=== PATIENT | male | born 1995 | race Two or more races ===

== ENCOUNTER 2025-04-14 21:15 | Emergency (ER) | payer MEDICAID, OTHER ==
[~2025-04-14] VITALS: Ht 167.6 cm; Wt 100.3 kg
[2025-04-14] MEDS: hydrOXYzine 25 MG TAB or CAP PO ONE (21:45)
--- NOTE | 2025-04-14 21:48 | ED.PDOC ---
History of Present Illness HPI Comments 29-year-old male who came to ER for chest pains. Patient has been experiencing intermittent episodes of his sternal chest pains for the past week, tight, nonradiating, associated with shortness of breath, cough, dizziness and numbness of both upper extremities. States chest pains usually occur at night Chief Complaint: Chest Pain Time Seen by MD: 21:48 Reviewed Notes: Nurses Notes Allergies: Coded Allergies: NO KNOWN ALLERGIES (Unverified , 04/14/25) Information Source: Patient Mode of Arrival: Ambulatory Past Medical History Past Medical History (Other): Celiac disease Surgical History: Denies all surgeries Family History Family History: Reviewed,noncontributory to illness Social History Smoker: Non-Smoker Alcohol: Denies ETOH Use Drugs: Denies Drug Use Lives In: Home Was a procedure done? Was a procedure done?: No EKG EKG : Pulse Rate (adult): 90 Cardiac Rhythm: NSR Differential Dx Considerations may include: Anemia, electrolyte imbalance, anxiety, chest pain X-Ray, Labs, Meds, VS Vital Signs Date Time Temp Pulse Resp B/P (MAP) Pulse Ox O2 Delivery O2 Flow Rate FiO2 04/15/25 00:29 98.4 65 18 146/80 (102) 100 98.4 04/14/25 22:10 98.7 68 16 143/82 (102) 98 98.7 04/14/25 21:48 90 04/14/25 21:25 80 04/14/25 21:15 98.2 104 22 170/81 98 98.2 Lab Test 04/15/25 00:32 04/14/25 22:30 04/14/25 21:31 Range/Units Troponin I High Sensitivity Pending < 3 L < 3 L </=54 ng/L White Blood Count 10.0 4.4-10.8 10^3/uL Red Blood Count 5.25 4.5-5.90 10^6/uL Hemoglobin 15.0 13.5-17.5 g/dL Hematocrit 43.8 41.0-53.0 % Mean Corpuscular Volume 83.4 80.0-100.0 fL Mean Corpuscular Hemoglobin 28.5 28.0-32.0 pg Mean Corpuscular Hemoglobin Concent 34.2 32.0-36.0 g/dL Red Cell Distribution Width 13.3 11.8-14.3 % Platelet Count 351 140-450 10^3/uL Mean Platelet Volume 7.9 6.9-10.8 fL Neutrophils (%) (Auto) 58.9 37.0-80.0 % Lymphocytes (%) (Auto) 32.7 10.0-50.0 % Monocytes (%) (Auto) 6.6 0.0-12.0 % Eosinophils (%) (Auto) 1.5 0.0-7.0 % Basophils (%) (Auto) 0.3 0.0-2.0 % Neutrophils # (Auto) 5.9 1.6-8.6 10 ^3/uL Lymphocytes # (Auto) 3.3 0.4-5.4 10 ^3/uL Monocytes # (Auto) 0.7 0-1.3 10 ^3/uL Eosinophils # (Auto) 0.1 0-0.8 10 ^3/uL Basophils # (Auto) 0 0-0.2 10 ^3/uL Nucleated Red Blood Cells 0.2 % Sodium Level 140 136-145 mmol/L Potassium Level 3.6 3.5-5.1 mmol/L Chloride Level 105 98-107 mmol/L Carbon Dioxide Level 24 20-31 mmol/L Anion Gap 11 5-15 Blood Urea Nitrogen 11 9-23 mg/dL Creatinine 1.25 0.700-1.30 mg/dL Glomerular Filtration Rate Calc 80 >90 mL/min BUN/Creatinine Ratio 8.8 L 10.0-20.0 Serum Glucose 96 74-106 mg/dL Calcium Level 9.8 8.7-10.4 mg/dL B-Type Natriuretic Peptide 10.60 0-100 pg/mL Current Medications Medications (Trade) Dose Ordered Sig/Jodi Route Start Time Stop Time Status Last Admin Al Hydrox/Mg Hydrox/Simethicone (Maalox Plus) 30 ml ONCE ONCE PO 04/14/25 21:45 04/14/25 21:46 DC 04/14/25 22:50 Lidocaine HCl (Xylocaine 2% Viscous) 10 ml ONCE ONCE PO 04/14/25 21:45 04/14/25 21:46 DC 04/14/25 22:50 Hydroxyzine Pamoate (Vistaril Oral) 50 mg ONCE ONCE PO 04/14/25 21:45 04/14/25 21:46 DC 04/14/25 21:45 PROCEDURE(s): CXR1 - CHEST XRAY 1 VIEW REASON: cp ORDER NUMBER(s): [id number], ACCESSION NUMBER(s): [id number] CLINICAL HISTORY: Chest pain. TECHNIQUE: Single frontal view of the chest was obtained. COMPARISON: None FINDINGS: DEVICES/LINES/TUBES: None. LUNGS: Clear. PLEURA: No pneumothorax or pleural effusion. MEDIASTINUM/OTHER: Normal heart size and mediastinal contours. Trachea is midline. BONES: Unremarkable. UPPER ABDOMEN: Unremarkable. IMPRESSION: No acute cardiopulmonary process. Time of 1ST Reevaluation: 21:42 Reevaluation 1ST: Unchanged Patient Education/Counseling: Need For Follow Up Family Education/Counseling: No Family Present SEPSIS Sepsis Screen Date sepsis recognized/suspect: Apr 14, 2025 Time Sepsis recognized/suspect: 2120 Recent Procedure: No On Antibiotic Therapy: No Respiratory Rate >20: No Heart Rate >90: Yes Temp<36 C (96.8 F) or >38.3 C: No SBP <90 or MAP <65 mmHG: No New Acute Mental Status Change: No Is the patient on CPAP, BIPAP,: No Physician Orders Electrocardigram (04/14/25 21:42) Chest Xray 1 View (04/14/25 21:42) Vital Signs Q1HR (04/14/25 21:42) Electrocardigram (04/14/25 22:42) Electrocardigram (04/15/25 00:42) Troponin-I Hs (04/15/25 00:42) Vital Signs Date Time Temp Pulse Resp B/P (MAP) Pulse Ox O2 Delivery O2 Flow Rate FiO2 04/15/25 00:29 98.4 65 18 146/80 (102) 100 98.4 04/14/25 22:10 98.7 68 16 143/82 (102) 98 98.7 04/14/25 21:48 90 04/14/25 21:25 80 04/14/25 21:15 98.2 104 22 170/81 98 98.2 Laboratory Tests Test 04/14/25 21:31 White Blood Count 10.0 10^3/uL (4.4-10.8) Medications Medications Dose Ordered Sig/Jodi Route Start Time Stop Time Status Last Admin Dose Admin Al Hydrox/Mg Hydrox/Simethicone 30 ml ONCE ONCE PO 04/14/25 21:45 04/14/25 21:46 DC 04/14/25 22:50 Hydroxyzine Pamoate 50 mg ONCE ONCE PO 04/14/25 21:45 04/14/25 21:46 DC 04/14/25 21:45 Lidocaine HCl 10 ml ONCE ONCE PO 04/14/25 21:45 04/14/25 21:46 DC 04/14/25 22:50 Departure 1 Departure Time of Disposition: 00:55 Impression: Primary Impression: Chest pain Disposition: HOME / SELF CARE / HOMELESS Condition: Stable Additional Instructions: ED DISCHARGE INSTRUCTIONS Instructions: Please read all instructions provided in this packet carefully. Although you have been discharged from the Emergency Department, this does not mean that you have a "clean bill of health". No definitive diagnosis for your symptoms has been made today. It is possible that you are in the process of developing a serious illness. This is why you must return to the ED without fail if any new or worsening symptoms (especially if your symptoms include chest pain, trouble breathing, abdominal pain, fever, headache, confusion, trouble seeing, or trouble walking) It is also very important that you see a primary care provider (PCP) within the next 3-5 days to follow up. If you are unable to get an appointment, return to the ED for re-evaluation. You had elevated blood pressure reading today. Untreated high blood pressure can have serious consequences. However, you need a follow-up appointment to recheck your blood pressure to determine whether or not you need treatment. Make an appointment with your primary care provider for this within the next week. CHEST PAIN EDUCATION There are many things that can cause chest pain. Some are not serious and will get better on their own in a few days. But some kinds of chest pain need more testing and treatment. Your doctor may have recommended a follow-up visit in the next few days. If you are not getting better, you may need more tests or treatment. Even though your doctor has released you, you still need to watch for any problems. The doctor carefully checked you, but sometimes problems can develop later. If you have new symptoms or if your symptoms do not get better, get medical care right away. If you have worse or different chest pain or pressure that lasts more than 5 minutes or you passed out (lost consciousness), call 911 or seek other emergency help right away. A medical visit is only one step in your treatment. Even if you feel better, you still need to do what your doctor recommends, such as going to all suggested follow-up appointments and taking medicines exactly as directed. This will help you recover and help prevent future problems. How can you care for yourself at home? Rest until you feel better. Take your medicine exactly as prescribed. Call your doctor if you think you are having a problem with your medicine. Do not drive after taking a prescription pain medicine. When should you call for help? Call 911 if: You passed out (lost consciousness). You have severe difficulty breathing. You have symptoms of a heart attack. These may include: Chest pain or pressure, or a strange feeling in your chest. Sweating. Shortness of breath. Nausea or vomiting. Pain, pressure, or a strange feeling in your back, neck, jaw, or upper belly or in one or both shoulders or arms. Lightheadedness or sudden weakness. A fast or irregular heartbeat. After you call 911, the siphon operator may tell you to chew 1 adult-strength or 2 to 4 low-dose aspirin. Wait for an ambulance. Do not try to drive yourself. Call your doctor now or seek immediate medical care if: You have any trouble breathing. You have new or different chest pain. You are dizzy or lightheaded, or you feel like you may faint. Watch closely for changes in your health, and be sure to contact your doctor if you do not get better as expected. Current as of: November 18, 2023 Author: [employer] Staff? e-Prescriptions Omeprazole (Gnp Omeprazole) 20 Mg Tab 1 TAB PO DAILY for 15 Days, #15 TAB 1 Refill Prov: LEONID MESSINA MD 04/15/25 Critical Care Note Critical Care Time?: No Stability Stability form required: No Heart Score Heart Score: Heart Score Response (Comments) Value History N/A 0 EKG N/A 0 Age N/A 0 Risk Factors N/A 0 Troponin N/A 0 Total 0 I personally scribed for LEONID MESSINA MD ([email or web address]) on 04/14/25 at 21:48. Electronically submitted by Pillo Isaacs ([facility]). I personally scribed for LEONID MESSINA MD ([email or web address]) on 04/14/25 at 22:50. Electronically submitted by Pillo Isaacs ([facility]). LEONID MESSINA MD Apr 14, 2025 21:48
[2025-04-14 21:59] LABS: Hematocrit 43.8 % (41.0-53.0); Hemoglobin 15.0 g/dL (13.5-17.5); Mean Corpuscular Hemoglobin 28.5 pg (28.0-32.0); Mean Corpuscular Volume 83.4 fL (80.0-100.0); Nucleated Red Blood Cells % 0.2 %
[2025-04-14 22:00] LABS: Chloride 105 mmol/L (98-107); Potassium 3.6 mmol/L (3.5-5.1); Sodium 140 mmol/L (136-145)
[2025-04-14 22:01] LABS: Anion Gap 11 (5-15); Carbon Dioxide 24 mmol/L (20-31)
[2025-04-14 22:02] LABS: Calcium 9.8 mg/dL (8.7-10.4)
[2025-04-14 22:06] LABS: BUN/Creatinine Ratio 8.8 (10.0-20.0); Blood Urea Nitrogen 11 mg/dL (9-23); Glucose 96 mg/dL (74-106)
--- NOTE | 2025-04-14 22:28 | DVH ---
CLINICAL HISTORY: Chest pain. TECHNIQUE: Single frontal view of the chest was obtained. COMPARISON: None FINDINGS: DEVICES/LINES/TUBES: None. LUNGS: Clear. PLEURA: No pneumothorax or pleural effusion. MEDIASTINUM/OTHER: Normal heart size and mediastinal contours. Trachea is midline. BONES: Unremarkable. UPPER ABDOMEN: Unremarkable. IMPRESSION: No acute cardiopulmonary process.
[2025-04-14] MEDS: MAALOX PLUS or MAALOX 30 ML PO ONE (22:50)
[2025-04-14] MEDS: LIDOCAINE VISCOUS 2% 15ML UD PO ONE (22:50)
[2025-04-15 00:29] VITALS: TEMP 98.4
[2025-04-15] MEDS ORDERED: OMEP20TA PO (00:56)
[2025-04-15] MEDS: ACETAMINOPHEN 500 MG TAB or CAP PO ONE (01:04)
[2025-04-15 03:07] VITALS: BP 132/60; PULSE 57; RESP 18; O2SAT 99
--- NOTE | 2025-04-17 07:41 | ECG ---
[facility] Test Date: 2025-04-14 Test Time: 21:25:23 Pat Name: BRITT VILLATORO Department: Room: Gender: M Recreational Leader: ZAHIDA : 1995 Requested By: LEONID MESSINA Order Number: [id number] Reading MD: Demetrio Leal Measurements Intervals [place] Rate: 80 P: 59 IN: 55 QRS: 79 QRSD: 91 T: 20 QT: 347 QTc: 401 Interpretive Statements Sinus rhythm Short IN interval ST elev, probable normal early repol pattern Baseline wander in lead(s) II,III,aVR,aVL,aVF,V1,V3,V4,V5 Electronically Signed On 04-20-2025 17:21:55 PST by Demetrio Leal Please click the below link to view image of tracing.
--- NOTE | 2025-04-17 10:08 | ECG ---
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
== END 2025-04-15 03:08 | disposition home or self-care (01) ==
LOC: ER 21:15
DX: R07.89 Other chest pain (principal); Z79.899 Other long term (current) drug therapy
CPT/HCPCS: 36415; 71045; 80048; 83880; 84484; 85025; 93005